=== PATIENT | female | born 2000 | race Caucasian/White ===

== ENCOUNTER 2023-09-15 21:37 | Emergency (ER) | payer BC, MEDICAID, SELFPAY ==
[2023-09-15 21:45] VITALS: BP 106/71; PULSE 123; RESP 16; TEMP 36.4; O2SAT 98; BMI 21.6
--- NOTE | 2023-09-15 21:51 | XRR_ITS ---
PROCEDURE INFORMATION: Exam: XR Chest Exam date and time: 09/15/2023 9:57 PM Age: 23 years old Clinical indication: Pain; Chest pressure; Additional info: Chest pain TECHNIQUE: Imaging protocol: Radiologic exam of the chest. Views: 1 view. COMPARISON: CR XR acute abdomen series [id number] 06/20/2017 3:34 PM FINDINGS: Lungs: Unremarkable. No consolidation. Pleural spaces: Unremarkable. No pleural effusion. No pneumothorax. Heart/Mediastinum: Unremarkable. No cardiomegaly. Bones/joints: Unremarkable. XR/XR chest 1V portable [id number] IMPRESSION: No acute findings.
--- NOTE | 2023-09-15 21:51 | ECG_ITS ---
[facility] Test Date: 2023-09-15 Pat Name: Sandee Simmons Department: Room: Gender: Female [employer]: : 2000 Requested By: Christo Piedra Order Number: [id number] Mumtaz MD: Dante Heath M.D. Measurements Intervals [place]er Rate: 120 P: 67 MS: 128 QRS: 95 QRSD: 82 T: 48 QT: 309 QTc: 438 Interpretive Statements SINUS TACHYCARDIA BORDERLINE RIGHT AXIS DEVIATION [QRS AXIS > 90] ABNORMAL RHYTHM ECG No previous ECG available for comparison Electronically Signed On 09-17-2023 0:02:01 CDT by Dante Heath M.D. [email or web address] medical [id number] f
[2023-09-15 21:57] LABS: Basophils % 0.3 %; Eosinophils # 0.1 10^3/uL (0.0-0.8); Eosinophils % 0.5 %; Lymphocytes # 0.6 10^3/uL (0.8-4.8); Lymphocytes % 4.1 %; Mean Corpuscular HGB Conc 32.8 g/dL (30-55); Mean Corpuscular Hemoglobin 29.5 pg (27-33); Mean Corpuscular Volume 89.9 fl (85-98); Mean Platelet Volume 11.8 fL (7.4-10.4); Monocytes # 0.8 10^3/uL (0.2-0.9); Monocytes % 5.5 %; Neutrophils # 12.76 10^3/uL (1.8-7.7); Neutrophils % 89.2 %; Nucleated Red Blood Cells % 0 %; Platelet Count 227 10^3/cmm (157-399); Red Blood Count 5.56 10^6/uL (3.85-5.65); Red Cell Distribution Width 12.4 % (12.1-15.1); White Blood Count 14.29 10^3/uL (3.29-11.43)
--- NOTE | 2023-09-15 22:01 | W.ED.ABDPA2 ---
Documented by User: NANCY Nuno 09/16/23 00:39 HPI - Abdominal Pain General: Chief Complaint: Abdominal Pain Stated Complaint: chest, back, abd pain n/v Time Seen by Provider: 09/15/23 21:43 Source: patient Mode of arrival: ambulatory Limitations: no limitations History of Present Illness: Patient is a 23-year-old female presents to the emergency department complaining of abdominal pain at approximately 1600 today. Patient states that the pain began all of a sudden, and she is now reporting that she is having some associated chest pain, back pain, breathing difficulties, nausea, vomiting, and diarrhea. She notes that her sibling was recently diagnosed with viral syndrome. Patient notes multiple episodes of bilious vomiting. She has been unable to keep down liquids. She denies any medical history. She is not reporting any fevers, syncope, or any other symptoms at this time. She does not have any urinary symptoms. She denies frequent marijuana or alcohol use. She denies any history of anxiety. The abdominal pain is noted to be epigastric and is currently an 8/10. She states it is a burning/stabbing and that it is now migrated into the back. Sometimes it radiates to the right upper quadrant. Patient still has her gallbladder and appendix. MD elicited complaint: abdominal pain Pertinent past history: none Onset (ago): hour(s) Pain Consistency: constant Location: Epigastric Severity: severe Quality: stabbing and burning Radiation: RUQ and back Exacerbating factors: nothing Relieving factors: nothing Associated Symptoms: Reports diarrhea, nausea and vomiting; Denies bloating, change in stool character, chills, constipation, dysuria, fever(s) and hematochezia Related Data: Date of Last Menstrual Period: 08/21/23 Review of Systems General: Reports: 10 or more systems reviewed and unremarkable except in HPI and below Const: Denies: fever(s), chills, change in appetite, change in weight or diaphoresis ENMT: Denies: throat pain or hoarseness Card: Reports: chest pain; Denies: palpitations or lightheadedness Resp: Reports: dyspnea; Denies: productive cough or wheezing GI: Reports: abdominal pain, nausea, vomiting and diarrhea; Denies: constipation, bloating, change in stool character or hematochezia : Denies: flank pain, difficulty voiding, dysuria, urinary frequency or urinary urgency Musc: Reports: back pain; Denies: neck pain Skin/Breast: Denies: rash or new lesions Neuro: Denies: headache(s) or dizziness [facility] ED Female Reproductive History: Date of last menstrual period: 08/21/23 Physical Exam Const: COMMON NORMALS: no acute distress, average body habitus, patient oriented x3, no limitations, healthy appearing, alert and well nourished GENERAL APPEARANCE: cooperative and comfortable ORIENTATION/CONSCIOUSNESS: Yes awake HENMT: COMMON NORMALS: normocephalic, atraumatic, hearing grossly normal bilaterally, external ears normal, Normal external nose present, Normal nasal mucous membranes and turbinates present and moist oral mucous membranes HEAD & SCALP: normocephalic and atraumatic NOSE: Normal external nose present and Normal nasal mucous membranes and turbinates present EXTERNAL EAR: Yes external ears normal Eye: COMMON NORMALS: Equal, round and reactive pupils present, EOMs intact bilaterally, conjunctivae normal and normal visual negrete by confrontation CONJUNCTIVA: Yes conjunctivae normal PUPIL: Yes Equal, round and reactive pupils present Neck/C-Spine: COMMON NORMALS: full ROM, supple, no meningeal signs and no JVD Resp: COMMON NORMALS: normal respiratory effort, No retractions, No use of accessory muscles and clear to auscultation bilaterally AUSCULTATION: clear to auscultation bilaterally, no crackles, no rales, no rhonchi and no wheezes Cardio: COMMON NORMALS: no JVD, regular rhythm, S1 normal heart sound present, S2 normal heart sound present, No gallops present (Cardio), No clicks present (Cardio), No murmurs present (Cardio), No rub (Cardio) and Peripheral pulses 2+ throughout RATE: tachycardic RHYTHM: regular rhythm HEART SOUNDS: S1 normal heart sound present and S2 normal heart sound present PERIPHERAL PULSES: Peripheral pulses 2+ throughout GI: COMMON NORMALS: Normal to inspection, nondistended, normoactive bowel sounds present, Soft to palpation, No hepatosplenomegaly present and no masses AUSCULTATION: Yes normoactive bowel sounds PALPATION: Yes Soft to palpation, Yes Tenderness to palpation present (GI) (Epigastric), No Guarding due to palpation present (GI), No Rigid due to palpation and Yes No hepatosplenomegaly present RECTAL EXAM: deferred : COMMON NORMALS: Yes no CVA tenderness BLADDER/KIDNEY EXAM: Yes no CVA tenderness Back/Pelvis: COMMON NORMALS: no CVA tenderness, thoracic and lumbar spine normal to inspection, no thoracic nor lumbar tenderness and thoraco-lumbar ROM normal Extremity: COMMON NORMALS: normal to inspection and full ROM Neuro: COMMON NORMALS: patient oriented x3, moves all extremities, no focal motor deficits and no sensory deficits noted SENSORIUM/ORIENTATION: Yes alert MENINGEAL SIGNS: Yes no meningeal signs Psych: COMMON NORMALS: mental status grossly normal, cooperative and speech normal SPEECH: Yes normal speech Skin: COMMON NORMALS: no rashes or lesions noted GENERAL SKIN EXAM: no rashes or lesions noted Course Vital Signs: Vital signs: Vital Signs Temperature 97.5 F L 09/15/23 21:45 Pulse Rate 100 09/16/23 00:40 Respiratory Rate 16 09/16/23 00:40 Blood Pressure 107/71 09/16/23 00:40 Pulse Oximetry 98 09/16/23 00:18 Oxygen Delivery Me thod Room Air 09/16/23 00:18 MDM - Abdominal Pain Medical Decision Making This patient was seen and evaluated in the emergency department today due to acute onset abdominal pain. On arrival patient's vitals overall unremarkable aside from some tachycardia. EKG obtained did not show any acute ST segment changes and only revealed tachycardia as noted. Exam was overall unremarkable, however she did have some reproducible tenderness to palpation of the epigastric area. Labs revealed a slightly elevated white count but were overall unremarkable. UA showed some signs of a cystitis with hematuria. test negative. Flu and COVID swabs also negative. Chest x-ray did not show any acute cardiopulmonary processes. Due to her pain and negative workup at the time, ordered an abdominal CT that showed no concerning abnormalities. Upon recheck she states she feels better after receiving Reglan and Toradol. I informed her of her negative findings and that her GI symptoms possibly due to a viral gastroenteritis, and she can follow-up with her primary care for any further evaluation. I also informed her of plan to treat for a acute cystitis, and she agrees that she has a history of urinary tract infections and feels like she has 1 now. She asks for prescriptions for the nausea medication as well as the p.o. form of Toradol, to which I we will send to her pharmacy. Will also treat her with Bactrim for the UTI. All other questions and concerns are addressed at this time. Return precautions are given and patient agrees with discharge home. Lab Data I reviewed the patient's lab results. 09/15/23 21:52 09/15/23 21:52 Labs/Radiology: Radiology Impressions Chest X-Ray 09/15/23 21:51 IMPRESSION: No acute findings. Abdomen/Pelvis CT 09/15/23 22:48 IMPRESSION: There are no acute concerning abnormalities. There is a left ovarian cyst.If there is desire for further evaluation, a pelvic ultrasound could be performed. Laboratory Results WBC 14.29 10^3/uL (3.29-11.43) H 09/15/23 21:52 RBC 5.56 10^6/uL (3.85-5.65) 09/15/23 21:52 Hgb 16.40 g/dL (11.27-16.99) 09/15/23 21:52 Hct 50.0 % (36-47) H 09/15/23 21:52 MCV 89.9 fl (85-98) 09/15/23 21:52 MCH 29.5 pg (27-33) 09/15/23 21:52 MCHC 32.8 g/dL (30-55) 09/15/23 21:52 RDW 12.4 % (12.1-15.1) 09/15/23 21:52 Plt Count 227 10^3/cmm (157-399) 09/15/23 21:52 MPV 11.8 fL (7.4-10.4) H 09/15/23 21:52 Neut % (Auto) 89.2 % 09/15/23 21:52 Lymph % (Auto) 4.1 % 09/15/23 21:52 [place] % (Auto) 5.5 % 09/15/23 21:52 Eos % (Auto) 0.5 % 09/15/23 21:52 Baso % (Auto) 0.3 % 09/15/23 21:52 Neut # (Auto) 12.76 10^3/uL (1.8-7.7) H 09/15/23 21:52 Lymph # (Auto) 0.6 10^3/uL (0.8-4.8) L 09/15/23 21:52 [place] # (Auto) 0.8 10^3/uL (0.2-0.9) 09/15/23 21:52 Eos # (Auto) 0.1 10^3/uL (0.0-0.8) 09/15/23 21:52 Baso # (Auto) 0.0 10^3/uL (0.0-0.1) 09/15/23 21:52 Nucleated RBC % (auto) 0 % 09/15/23 21:52 Nucleated RBCs # 0.0 /100WBC 09/15/23 21:52 D-Dimer 0.41 ug/mLFEU (0-0.59) 09/15/23 21:52 Sodium 141 mmol/L (136-145) 09/15/23 21:52 Potassium 4.1 mmol/L (3.5-5.1) 09/15/23 21:52 Chloride 107 mmol/L (98-107) 09/15/23 21:52 Carbon Dioxide 21 mmol/L (22-29) L 09/15/23 21:52 Anion Gap 17.1 (5-19) 09/15/23 21:52 BUN 19 mg/dL (6-20) 09/15/23 21:52 Creatinine 0.8 mg/dL (0.5-0.9) 09/15/23 21:52 GFR Calculation 90.5 mL/min (90-130) 09/15/23 21:52 Glucose 109 mg/dL (65-115) 09/15/23 21:52 Calculated Osmolality 295 mOsm/kg (285-295) 09/15/23 21:52 Calcium 9.3 mg/dL (8.5-10.5) 09/15/23 21:52 Total Bilirubin 0.7 mg/dL (0.15-1.2) 09/15/23 21:52 AST 12 U/L (0-32) 09/15/23 21:52 ALT 10 U/L (0-33) 09/15/23 21:52 Alkaline Phosphatase 67 U/L (35-105) 09/15/23 21:52 Total Protein 7.6 g/dL (6.6-8.7) 09/15/23 21:52 Albumin 4.5 g/dL (3.5-5.2) 09/15/23 21:52 Globulin 3.1 g/dL (1.3-4.6) 09/15/23 21:52 Lipase 28 U/L (13-60) 09/15/23 21:52 HCG, Qual Negative (Negative) 09/15/23 21:52 Urine Color Dark yellow (Yellow) 09/15/23 23:00 Urine Appearance Hazy (CLEAR) A 09/15/23 23:00 Urine pH 5 (5-7) 09/15/23 23:00 Ur Specific [place] 1.030 (1.005-1.030) 09/15/23 23:00 Urine Protein 1+ (Negative) H 09/15/23 23:00 Urine Glucose (UA) Norm (Normal) 09/15/23 23:00 Urine Ketones 1+ (Negative) H 09/15/23 23:00 Urine Blood 3+ (Negative) H 09/15/23 23:00 Urine Nitrate Negative (Negative) 09/15/23 23:00 Urine Bilirubin 1+ (Negative) H 09/15/23 23:00 Urine Urobilinogen Neg mg/dL (Negative) 09/15/23 23:00 Ur Leukocyte Esterase Negative (Negative) 09/15/23 23:00 Urine RBC 15-25 /hpf (0-2) H 09/15/23 23:00 Urine WBC None /hpf (0-5) 09/15/23 23:00 Ur Squamous Epith Cells 10-15 /hpf (0-5) H 09/15/23 23:00 Amorphous Sediment Not Reportable 09/15/23 23:00 Urine Bacteria 1+ /hpf (NONE) H 09/15/23 23:00 Urine Mucus 3+ /hpf 09/15/23 23:00 Influenza Type A Ag Negative (Negative) 09/15/23 21:57 Influenza Type B Ag Negative (Negative) 09/15/23 21:57 SARS-CoV-2 Ag (Rapid) Negative (Negative) 09/15/23 21:57 All radiology interpretation(s) finalized by discharge EKG Data EKG 1: I personally reviewed and interpreted this EKG as follows: EKG interpretation date: 09/15/23 EKG interpretation time: 22:08 Prior EKG tracings: not available for review Interpretation: EKG reviewed by me. Sinus tachycardia. Rate 120. Normal intervals. No acute ST segment changes. No previous for comparison. Discharge Plan Discharge Patient Disposition: Home Clinical Impression: Gastroenteritis Urinary tract infection Qualifiers: Urinary tract infection type: acute cystitis Hematuria presence: with hematuria Qualified Code(s): N30.01 - Acute cystitis with hematuria Condition: Stable Prescriptions: New Bactrim DS 800-160 mg tablet 1 tab PO DAILY 7 Days Qty: 7 0RF ondansetron HCl 4 mg tablet 4 mg PO Q8H Qty: 30 0RF ketorolac 10 mg tablet 10 mg PO Q8H PRN (Reason: pain) Qty: 30 0RF Discharge Orders: Discharge ED (Routine); Ordered 09/16/23 Ordered By: Christo Ortiz Discharge Diet: Usual diet Discharge Activity: Increase activity as tolerated Patient Instructions: Urinary Tract Infection in Women (ED), Acute Nausea and Vomiting (ED) Activity Restrictions/Additional Instructions: Bactrim as prescribed. Zofran as needed. Toradol as needed. Plenty of fluids. Follow-up with your primary care provider. Return with any new or worsening symptoms. Coding Level of Care Code ED Student Services Coordinator for [facility] Documented by User: See Michaels DO 09/16/23 06:30 HPI - Abdominal Pain General: Chief Complaint: Abdominal Pain Stated Complaint: chest, back, abd pain n/v Time Seen by Provider: 09/15/23 21:43 Course Vital Signs: Vital signs: Vital Signs Temperature 97.5 F L 09/15/23 21:45 Pulse Rate 100 09/16/23 00:40 Respiratory Rate 16 09/16/23 00:40 Blood Pressure 107/71 09/16/23 00:40 Pulse Oximetry 98 09/16/23 00:18 Oxygen Delivery Me thod Room Air 09/16/23 00:18 MDM - Abdominal Pain Medical Decision Making This patient was seen and evaluated in the emergency department today due to acute onset abdominal pain. On arrival patient's vitals overall unremarkable aside from some tachycardia. EKG obtained did not show any acute ST segment changes and only revealed tachycardia as noted. Exam was overall unremarkable, however she did have some reproducible tenderness to palpation of the epigastric area. Labs revealed a slightly elevated white count but were overall unremarkable. UA showed some signs of a cystitis with hematuria. test negative. Flu and COVID swabs also negative. Chest x-ray did not show any acute cardiopulmonary processes. Due to her pain and negative workup at the time, ordered an abdominal CT that showed no concerning abnormalities. Upon recheck she states she feels better after receiving Reglan and Toradol. I informed her of her negative findings and that her GI symptoms possibly due to a viral gastroenteritis, and she can follow-up with her primary care for any further evaluation. I also informed her of plan to treat for a acute cystitis, and she agrees that she has a history of urinary tract infections and feels like she has 1 now. She asks for prescriptions for the nausea medication as well as the p.o. form of Toradol, to which I we will send to her pharmacy. Will also treat her with Bactrim for the UTI. All other questions and concerns are addressed at this time. Return precautions are given and patient agrees with discharge home. Chart reviewed Lab Data 09/15/23 21:52 09/15/23 21:52 Labs/Radiology: Radiology Impressions Chest X-Ray 09/15/23 21:51 IMPRESSION: No acute findings. Abdomen/Pelvis CT 09/15/23 22:48 IMPRESSION: There are no acute concerning abnormalities. There is a left ovarian cyst.If there is desire for further evaluation, a pelvic ultrasound could be performed. Laboratory Results WBC 14.29 10^3/uL (3.29-11.43) H 09/15/23 21:52 RBC 5.56 10^6/uL (3.85-5.65) 09/15/23 21:52 Hgb 16.40 g/dL (11.27-16.99) 09/15/23 21:52 Hct 50.0 % (36-47) H 09/15/23 21:52 MCV 89.9 fl (85-98) 09/15/23 21:52 MCH 29.5 pg (27-33) 09/15/23 21:52 MCHC 32.8 g/dL (30-55) 09/15/23 21:52 RDW 12.4 % (12.1-15.1) 09/15/23 21:52 Plt Count 227 10^3/cmm (157-399) 09/15/23 21:52 MPV 11.8 fL (7.4-10.4) H 09/15/23 21:52 Neut % (Auto) 89.2 % 09/15/23 21:52 Lymph % (Auto) 4.1 % 09/15/23 21:52 [place] % (Auto) 5.5 % 09/15/23 21:52 Eos % (Auto) 0.5 % 09/15/23 21:52 Baso % (Auto) 0.3 % 09/15/23 21:52 Neut # (Auto) 12.76 10^3/uL (1.8-7.7) H 09/15/23 21:52 Lymph # (Auto) 0.6 10^3/uL (0.8-4.8) L 09/15/23 21:52 [place] # (Auto) 0.8 10^3/uL (0.2-0.9) 09/15/23 21:52 Eos # (Auto) 0.1 10^3/uL (0.0-0.8) 09/15/23 21:52 Baso # (Auto) 0.0 10^3/uL (0.0-0.1) 09/15/23 21:52 Nucleated RBC % (auto) 0 % 09/15/23 21:52 Nucleated RBCs # 0.0 /100WBC 09/15/23 21:52 D-Dimer 0.41 ug/mLFEU (0-0.59) 09/15/23 21:52 Sodium 141 mmol/L (136-145) 09/15/23 21:52 Potassium 4.1 mmol/L (3.5-5.1) 09/15/23 21:52 Chloride 107 mmol/L (98-107) 09/15/23 21:52 Carbon Dioxide 21 mmol/L (22-29) L 09/15/23 21:52 Anion Gap 17.1 (5-19) 09/15/23 21:52 BUN 19 mg/dL (6-20) 09/15/23 21:52 Creatinine 0.8 mg/dL (0.5-0.9) 09/15/23 21:52 GFR Calculation 90.5 mL/min (90-130) 09/15/23 21:52 Glucose 109 mg/dL (65-115) 09/15/23 21:52 Calculated Osmolality 295 mOsm/kg (285-295) 09/15/23 21:52 Calcium 9.3 mg/dL (8.5-10.5) 09/15/23 21:52 Total Bilirubin 0.7 mg/dL (0.15-1.2) 09/15/23 21:52 AST 12 U/L (0-32) 09/15/23 21:52 ALT 10 U/L (0-33) 09/15/23 21:52 Alkaline Phosphatase 67 U/L (35-105) 09/15/23 21:52 Total Protein 7.6 g/dL (6.6-8.7) 09/15/23 21:52 Albumin 4.5 g/dL (3.5-5.2) 09/15/23 21:52 Globulin 3.1 g/dL (1.3-4.6) 09/15/23 21:52 Lipase 28 U/L (13-60) 09/15/23 21:52 HCG, Qual Negative (Negative) 09/15/23 21:52 Urine Color Dark yellow (Yellow) 09/15/23 23:00 Urine Appearance Hazy (CLEAR) A 09/15/23 23:00 Urine pH 5 (5-7) 09/15/23 23:00 Ur Specific [place] 1.030 (1.005-1.030) 09/15/23 23:00 Urine Protein 1+ (Negative) H 09/15/23 23:00 Urine Glucose (UA) Norm (Normal) 09/15/23 23:00 Urine Ketones 1+ (Negative) H 09/15/23 23:00 Urine Blood 3+ (Negative) H 09/15/23 23:00 Urine Nitrate Negative (Negative) 09/15/23 23:00 Urine Bilirubin 1+ (Negative) H 09/15/23 23:00 Urine Urobilinogen Neg mg/dL (Negative) 09/15/23 23:00 Ur Leukocyte Esterase Negative (Negative) 09/15/23 23:00 Urine RBC 15-25 /hpf (0-2) H 09/15/23 23:00 Urine WBC None /hpf (0-5) 09/15/23 23:00 Ur Squamous Epith Cells 10-15 /hpf (0-5) H 09/15/23 23:00 Amorphous Sediment Not Reportable 09/15/23 23:00 Urine Bacteria 1+ /hpf (NONE) H 09/15/23 23:00 Urine Mucus 3+ /hpf 09/15/23 23:00 Influenza Type A Ag Negative (Negative) 09/15/23 21:57 Influenza Type B Ag Negative (Negative) 09/15/23 21:57 SARS-CoV-2 Ag (Rapid) Negative (Negative) 09/15/23 21:57 Discharge Plan Discharge Patient Disposition: Home Clinical Impression: Gastroenteritis Urinary tract infection Qualifiers: Urinary tract infection type: acute cystitis Hematuria presence: with hematuria Qualified Code(s): N30.01 - Acute cystitis with hematuria Condition: Stable Prescriptions: New Bactrim DS 800-160 mg tablet 1 tab PO DAILY 7 Days Qty: 7 0RF ondansetron HCl 4 mg tablet 4 mg PO Q8H Qty: 30 0RF ketorolac 10 mg tablet 10 mg PO Q8H PRN (Reason: pain) Qty: 30 0RF Discharge Orders: Discharge ED (Routine); Ordered 09/16/23 Ordered By: Christo Ortiz Discharge Diet: Usual diet Discharge Activity: Increase activity as tolerated Patient Instructions: Urinary Tract Infection in Women (ED), Acute Nausea and Vomiting (ED) Activity Restrictions/Additional Instructions: Bactrim as prescribed. Zofran as needed. Toradol as needed. Plenty of fluids. Follow-up with your primary care provider. Return with any new or worsening symptoms. Coding Level of Care Code ED Student Services Coordinator for Massiel Mccabe
[2023-09-15] MEDS: ketorolac 60 mg/2 mL INJ 30 MG IVP (22:10)
[2023-09-15] MEDS: diphenhydrAMINE 50 mg/mL SDV 1mL IVP (22:10)
[2023-09-15] MEDS: metoclopramide 5 mg/mL SDV 2 mL 10 MG IVP (22:11)
[2023-09-15] MEDS: sodium chloride 0.9% 1,000 ML 999 ML IV ×2 (22:15→23:32)
[2023-09-15 22:17] VITALS: BP 106/74; RESP 18; O2SAT 98
[2023-09-15 22:19] LABS: HCG, Serum Qual Negative (Negative)
[2023-09-15 22:24] LABS: D Dimer 0.41 ug/mLFEU (0-0.59)
[2023-09-15 22:26] LABS: SARS Covid-2 Antigen Negative (Negative)
[2023-09-15 22:26] LABS: Alanine Aminotransferase 10 U/L (0-33); Albumin Level 4.5 g/dL (3.5-5.2); Alkaline Phosphatase 67 U/L (35-105); Anion Gap 17.1 (5-19); Aspartate Amino Transferase 12 U/L (0-32); Blood Urea Nitrogen 19 mg/dL (6-20); Calcium 9.3 mg/dL (8.5-10.5); Carbon Dioxide 21 mmol/L (22-29); Chloride 107 mmol/L (98-107); Creatinine Clr Calc Pharmacy 108.8739; Globulin 3.1 g/dL (1.3-4.6); Glomerular Filtration Rate 90.5 mL/min (90-130); Glucose 109 mg/dL (65-115); Lipase 28 U/L (13-60); Osmolality Calculated 295 mOsm/kg (285-295); Potassium 4.1 mmol/L (3.5-5.1); Sodium 141 mmol/L (136-145); Total Bilirubin 0.7 mg/dL (0.15-1.2); Total Protein 7.6 g/dL (6.6-8.7)
--- NOTE | 2023-09-15 22:48 | CTR_ITS ---
PROCEDURE INFORMATION: Exam: CT Abdomen And Pelvis With Contrast Exam date and time: 09/15/2023 11:12 PM Age: 23 years old Clinical indication: Abdominal pain; Epigastric; Additional info: Epigastric/ruq pain TECHNIQUE: Imaging protocol: Computed tomography of the abdomen and pelvis with contrast. Radiation optimization: All CT scans at this facility use at least one of these dose optimization techniques: automated exposure control; mA and/or kV adjustment per patient size (includes targeted exams where dose is matched to clinical indication); or iterative reconstruction. Contrast material: OMNI 350; Contrast volume: 100 ml; Contrast route: INTRAVENOUS (IV); COMPARISON: CR XR acute abdomen series [id number] 06/20/2017 3:34 PM RADIATION DOSE METRICS: Total DLP (mGy-cm): 390.93 FINDINGS: Liver: Normal. No mass. Gallbladder and bile ducts: Normal. No calcified stones. No ductal dilation. Pancreas: Normal. No ductal dilation. Spleen: Normal. No splenomegaly. Adrenal glands: Normal. No mass. Kidneys and ureters: Normal. No hydronephrosis. Stomach and bowel: No bowel obstruction or wall thickening. Appendix: The appendix is not definitely seen, but there are no secondary findings to suggest appendicitis. Intraperitoneal space: Unremarkable. No free air. No significant fluid collection. Vasculature: Unremarkable. No abdominal aortic aneurysm. Lymph nodes: Unremarkable. No enlarged lymph nodes. Urinary bladder: Unremarkable as visualized. Reproductive: There is a 2.7 cm left ovarian cyst. No associated fat or calcification. Bones/joints: Unremarkable. No acute fracture. Soft tissues: Unremarkable. CT/CT abdomen pelvis w con* [id number] IMPRESSION: There are no acute concerning abnormalities. There is a left ovarian cyst.If there is desire for further evaluation, a pelvic ultrasound could be performed.
[2023-09-15 22:52] LABS: Influenza A by IFA Negative (Negative); Influenza B by IFA Negative (Negative)
[2023-09-15 23:06] VITALS: BP 97/68; PULSE 97; O2SAT 98
[2023-09-15] MEDS: iohexol 350 mg/mL 500 mL Btl (per mL) IV (23:14)
[2023-09-15 23:18] LABS: Add Urine Microscopic? YES; Bilirubin Urine 1+ (Negative); Blood Urine 3+ (Negative); Glucose Urine UA Norm (Normal); Ketones Urine 1+ (Negative); Leukocyte Esterase Urine Negative (Negative); Nitrate Urine Negative (Negative); Protein Urine 1+ (Negative); Urine Appearance Hazy (CLEAR); Urine Color Dark Yellow (Yellow); Urobilinogen Urine Neg (Negative); pH Urine 5 (5-7)
[2023-09-15 23:19] LABS: Add Urine Culture? No; Bacteria Urine 1+ /hpf; Mucus Urine 3+ /hpf; RBC Urine 15-25 /hpf (0-2)
[2023-09-16 00:18] VITALS: BP 95/59; PULSE 103; RESP 17; O2SAT 98
[2023-09-16 00:40] VITALS: BP 107/71; PULSE 100; RESP 16
== END 2023-09-16 00:41 | disposition home or self-care (01) ==
PROVIDERS: Emergency Medicine; Emergency Provider Physician Assistant
DX: K52.9 Noninfective gastroenteritis and colitis, unspecified (principal); N30.01 Acute cystitis with hematuria; Z11.52 Encounter for screening for COVID-19
CPT/HCPCS: 71045; 74177; 80053; 81001; 83690; 84703; 85025; 85378; 87426; 87804; 93005; 96361; 96374; 96375; 99285; J1200; J1885; J2765; J7030; Q9967